=== PATIENT | male | born 1940 | race Caucasian/White ===

== ENCOUNTER 2023-01-22 17:43 | Emergency (ER) | payer MEDICARE ==
[2023-01-22 18:25] LABS: #Basophils 0.1 thou/uL (0.0-0.2); #Eosinphils 0.2 thou/uL (0.0-0.7); #Monocytes 0.7 thou/uL (0.11-0.59); #Neutrophils 4.1 thou/uL (1.40-6.50); %Basophils 1.1 % (0.0-1.0); %Eosinophils 2.8 % (0.0-10.0); %Lymphocytes 27.2 % (21.0-51.0); %Monocytes 9.7 % (0.0-10.0); %Neutrophils 58.8 % (42.0-75.0); Hematocrit 47.1 % (42.0-52.0); Hemoglobin 15.2 g/dL (14.0-18.0); Mean Corpuscular HGB CONC 32.3 g/dL (32.0-36.0); Mean Corpuscular Hemoglobin 30.8 pg (27.0-31.0); Mean Corpuscular Volume 95.3 fl (78.0-98.0); Mean Platelet Volume 14.1 fL (7.4-10.4); Platelet Count 91 10x3/uL (130-400); RBC Distribution Width 14.6 % (11.5-14.5); Red Blood Cell (RBC) Count 4.94 mill/uL (4.70-6.10)
[2023-01-22 18:34] LABS: Bacteria/HPF 3+ HPF (None Seen); Bilirubin Negative (Negative); Blood, Urine Negative (Negative); CAUTI Indications for Culture Alt mental st,lethar; Clarity Clear (Clear); Glucose, Urine (Dipstick) Normal (Negative); Ketone, Urine Negative (Negative); Leukocyte 75 Leu/uL (Negative); Nitrite Negative (Negative); Protein, Urine (Dipstick) 20 mg/dL (Neg-Trace); RBC/HPF 0-3 HPF (0-3); Specific Gravity, Urine 1.015 (1.002-1.036); Squamous Epithelial 0-3 HPF (0-3); Urobilinogen 3 mg/dL (Less than 2); pH, Urine 6.5 (5.0-9.0)
[2023-01-22 18:36] LABS: Urine Culture Reflex No No
[2023-01-22 18:41] LABS: PTT 28.6 sec (22.9-36.1)
[2023-01-22 18:46] LABS: INR-International Normal Ratio 1.2; Prothrombin Time 15.4 sec (12.0-14.7)
[2023-01-22 18:48] LABS: Burr Cells SLIGHT = 2-5 cells HPF (0-1); CellaVision Operator ID LAB.KB; Platelet Adequacy Comment Platelets Decreased
[2023-01-22 18:51] LABS: ALT (SGPT) 15 U/L (8-55); AST (SGOT) 43 U/L (5-34); Albumin 4.2 g/dL (3.4-4.8); Alkaline Phosphatase 197 U/L (40-110); Anion Gap 22 mmol/L (10-20); BUN (Urea Nitrogen) 14 mg/dL (8.4-25.7); Bilirubin, Total 1.3 mg/dL (0.2-1.2); Calc. Creatinine Clearance 0 mL/min (70-130); Calcium 9.4 mg/dL (7.8-10.44); Carbon Dioxide 15 mmol/L (23-31); Chloride 108 mmol/L (98-107); Estimated GFR 73; Globulin 2.8 g/dL (2.4-3.5); Glucose 88 mg/dL (83-110); Potassium 3.8 mmol/L (3.5-5.1); Sodium 141 mmol/L (136-145)
[2023-01-22 18:54] LABS: Troponin I Less than 0.010 ng/mL (< 0.028)
[2023-01-22 19:27] LABS: Base Excess -12.3 mEq/L (-2.0 to +3.0); Calcium, Ionized (venous) 1.09 mmol/L (1.16-1.32); Chloride (VBG) 106 mmol/L (98-106); Hematocrit-VBG 48 % (42.0-52.0); Hemoglobin (Hb) 16.2 g/dL (12.6-17.4); Potassium (VBG) 3.59 mmol/L (3.70-5.30); Sodium 141.1 mmol/L (133-146)
[2023-01-22 19:31] LABS: Actual Bicarbonate (HCO3v) 13.2 mEq/L (22-28)
[2023-01-22 22:01] LABS: Lactic Acid 2.3 mmol/L (0.5-2.2)
== END 2023-01-22 22:29 | disposition home or self-care (01) ==
LOC: EDBD 17:43 → ERS 17:43
DX: R56.9 Unspecified convulsions (principal); E11.9 Type 2 diabetes mellitus without complications; Z79.82 Long term (current) use of aspirin; Z79.899 Other long term (current) drug therapy; Z79.4 Long term (current) use of insulin
CPT/HCPCS: 36415; 51702; 70450; 75809; 80053; 81001; 82805; 83605; 84484; 85025; 85610; 85730; 87040; 87077; 87086; 87186; 93005

== ENCOUNTER 2023-04-11 12:45 | Inpatient (IN) | payer MEDICARE, BC ==
[2023-04-11] MEDS ORDERED: levETIRAcetam 500 MG/5 ML VIAL ONE (13:30)
[2023-04-11 13:39] LABS: #Basophils 0.1 thou/uL (0.0-0.2); #Eosinphils 0.2 thou/uL (0.0-0.7); #Monocytes 0.7 thou/uL (0.11-0.59); #Neutrophils 5.6 thou/uL (1.40-6.50); %Basophils 0.7 % (0.0-1.0); %Eosinophils 2.4 % (0.0-10.0); %Lymphocytes 20.8 % (21.0-51.0); %Monocytes 8.2 % (0.0-10.0); %Neutrophils 67.4 % (42.0-75.0); Hematocrit 41.3 % (42.0-52.0); Hemoglobin 13.5 g/dL (14.0-18.0); Mean Corpuscular HGB CONC 32.7 g/dL (32.0-36.0); Mean Corpuscular Hemoglobin 31.7 pg (27.0-31.0); Mean Corpuscular Volume 96.9 fl (78.0-98.0); Platelet Count 87 10x3/uL (130-400); RBC Distribution Width 14.3 % (11.5-14.5); Red Blood Cell (RBC) Count 4.26 mill/uL (4.70-6.10); White Blood Cell (WBC) Count 8.3 10x3/uL (4.8-10.8)
[2023-04-11 14:06] LABS: ALT (SGPT) 11 U/L (8-55); AST (SGOT) 38 U/L (5-34); Albumin 4.1 g/dL (3.4-4.8); Alkaline Phosphatase 156 U/L (40-110); Anion Gap 21 mmol/L (10-20); BUN (Urea Nitrogen) 15 mg/dL (8.4-25.7); Bilirubin, Total 0.9 mg/dL (0.2-1.2); Calc. Creatinine Clearance 0 mL/min (70-130); Calcium 9.1 mg/dL (7.8-10.44); Carbon Dioxide 15 mmol/L (23-31); Chloride 109 mmol/L (98-107); Estimated GFR 62; Globulin 2.3 g/dL (2.4-3.5); Glucose 108 mg/dL (83-110); Potassium 3.5 mmol/L (3.5-5.1); Protein, Total 6.4 g/dL (5.8-8.1); Sodium 141 mmol/L (136-145)
[2023-04-11 15:29] LABS: Bacteria/HPF None Seen HPF (None Seen); Bilirubin Negative (Negative); Blood, Urine Negative (Negative); CAUTI Indications for Culture Alt mental st,lethar; Clarity Clear (Clear); Glucose, Urine (Dipstick) Normal (Negative); Ketone, Urine Negative (Negative); Leukocyte Negative Leu/uL (Negative); Nitrite Negative (Negative); Protein, Urine (Dipstick) 20 mg/dL (Neg-Trace); RBC/HPF 0-3 HPF (0-3); Specific Gravity, Urine 1.018 (1.002-1.036); Squamous Epithelial 0-3 HPF (0-3); Urobilinogen 6 mg/dL (Less than 2); WBC/HPF 0-3 HPF (0-3); pH, Urine 6.5 (5.0-9.0)
[2023-04-11 15:32] LABS: Urine Culture Reflex No No
[2023-04-11] MEDS ORDERED: Dextrose 10% in Water 1,000 ML IV SCH (16:45)
[2023-04-11] MEDS ORDERED: Senokot S 8.6-50 MG TAB PO PRN (16:46)
[2023-04-11] MEDS ORDERED: Ondansetron ODT 4 MG TAB PO PRN (16:46)
[2023-04-11] MEDS ORDERED: Calcium Carbonate 500 MG ChewTAB PO PRN (16:46)
[2023-04-11] MEDS ORDERED: Dextrose 50% Abboject 50 ML SYRINGE SLOW IVP PRN (16:47)
[2023-04-11] MEDS ORDERED: Glucagon 1 MG/ML KIT IM PRN (16:47)
[2023-04-11] MEDS ORDERED: Dextrose 5% in Water 1,000 ML IV PRN (16:47)
[2023-04-11 18:05] VITALS: BMI 27.2
[2023-04-12 05:53] LABS: #Basophils 0.1 thou/uL (0.0-0.2); #Eosinphils 0.1 thou/uL (0.0-0.7); #Monocytes 0.6 thou/uL (0.11-0.59); #Neutrophils 4.6 thou/uL (1.40-6.50); %Basophils 0.9 % (0.0-1.0); %Eosinophils 1.7 % (0.0-10.0); %Lymphocytes 18.5 % (21.0-51.0); %Monocytes 8.8 % (0.0-10.0); %Neutrophils 69.8 % (42.0-75.0); Hematocrit 37.1 % (42.0-52.0); Hemoglobin 12.5 g/dL (14.0-18.0); Mean Corpuscular HGB CONC 33.7 g/dL (32.0-36.0); Mean Corpuscular Hemoglobin 30.9 pg (27.0-31.0); RBC Distribution Width 13.9 % (11.5-14.5); Red Blood Cell (RBC) Count 4.05 mill/uL (4.70-6.10); White Blood Cell (WBC) Count 6.6 10x3/uL (4.8-10.8)
[2023-04-12 06:03] LABS: Mean Corpuscular Volume 91.6 fl (78.0-98.0); Platelet Count 75 10x3/uL (130-400)
[2023-04-12 06:19] LABS: Anion Gap 11 mmol/L (10-20); BUN (Urea Nitrogen) 10 mg/dL (8.4-25.7); Calc. Creatinine Clearance 75 mL/min (70-130); Calcium 8.3 mg/dL (7.8-10.44); Carbon Dioxide 20 mmol/L (23-31); Chloride 108 mmol/L (98-107); Estimated GFR 79; Glucose 188 mg/dL (83-110); Potassium 3.2 mmol/L (3.5-5.1); Sodium 136 mmol/L (136-145)
[2023-04-12] MEDS ORDERED: Famotidine 20 MG TAB PO SCH (09:00)
[2023-04-12] MEDS ORDERED: Aspirin 81 mg Enteric Coated Tablet PO SCH (10:45)
[2023-04-12] MEDS ORDERED: Carbidopa/Levodopa 25-100 mg Tablet PO SCH (10:45)
[2023-04-12] MEDS ORDERED: Zonisamide 100 MG CAP PO SCH (10:45)
[2023-04-12] MEDS: Carbidopa/Levodopa 25-100 mg Tablet PO SCH ×2 (16:23→20:59)
[2023-04-12] MEDS ORDERED: Potassium Chloride 20 MEQ TAB PO SCH (17:00)
[2023-04-12] MEDS ORDERED: Lisinopril 20 MG TAB PO SCH (17:45)
[2023-04-12] MEDS ORDERED: Potassium Bicarbonate/Cit Ac 20 MEQ TAB PO SCH (18:15)
[2023-04-12] MEDS: Atorvastatin Calcium 40 MG TAB PO SCH (20:59)
[2023-04-12] MEDS: Zonisamide 100 MG CAP PO SCH (20:59)
[2023-04-12] MEDS: Famotidine 20 MG TAB PO SCH (21:00)
[2023-04-13 03:32] LABS: #Basophils 0.1 thou/uL (0.0-0.2); #Eosinphils 0.2 thou/uL (0.0-0.7); #Monocytes 0.6 thou/uL (0.11-0.59); #Neutrophils 3.9 thou/uL (1.40-6.50); %Lymphocytes 22.2 % (21.0-51.0); %Neutrophils 63.3 % (42.0-75.0); Hematocrit 37.6 % (42.0-52.0); Hemoglobin 12.8 g/dL (14.0-18.0); Mean Corpuscular Hemoglobin 31.5 pg (27.0-31.0); Mean Corpuscular Volume 92.6 fl (78.0-98.0); Red Blood Cell (RBC) Count 4.06 mill/uL (4.70-6.10); White Blood Cell (WBC) Count 6.1 10x3/uL (4.8-10.8)
[2023-04-13 03:34] LABS: Platelet Count 74 10x3/uL (130-400)
[2023-04-13 03:41] LABS: Hemoglobin A1c 7.1 % (4.0-6.0)
[2023-04-13 03:53] LABS: ALT (SGPT) Less than 7 U/L (8-55); AST (SGOT) 24 U/L (5-34); Albumin 3.6 g/dL (3.4-4.8); Alkaline Phosphatase 152 U/L (40-110); Anion Gap 11 mmol/L (10-20); BUN (Urea Nitrogen) 11 mg/dL (8.4-25.7); Calc. Creatinine Clearance 67 mL/min (70-130); Calcium 8.5 mg/dL (7.8-10.44); Carbon Dioxide 22 mmol/L (23-31); Chloride 110 mmol/L (98-107); Estimated GFR 69; Glucose 228 mg/dL (83-110); Protein, Total 5.6 g/dL (5.8-8.1); Sodium 139 mmol/L (136-145)
[2023-04-13] MEDS ORDERED: Potassium Bicarbonate/Cit Ac 20 MEQ TAB PO SCH (08:00)
[2023-04-13] MEDS ORDERED: Non-Formulary Item 1 EACH (Insulin Lispro Protamin/Lispro [Humalog Mix 75/25 Kwikpen] 300 SQ SCH (09:00)
[2023-04-13] MEDS: Lisinopril 20 MG TAB PO SCH (09:50)
[2023-04-13] MEDS: Carbidopa/Levodopa 25-100 mg Tablet PO SCH ×3 (09:51→20:37)
[2023-04-13] MEDS: Famotidine 20 MG TAB PO SCH ×2 (09:51→20:37)
[2023-04-13] MEDS: Amlodipine 5 MG TAB PO SCH (09:52)
[2023-04-13] MEDS: Aspirin 81 mg Enteric Coated Tablet PO SCH (09:52)
[2023-04-13] MEDS: HumuLIN 70/30 (300 UNITS/3 ML VIAL) FS SCH ×2 (09:52→20:38)
[2023-04-13] MEDS: Zonisamide 100 MG CAP PO SCH ×2 (09:52→20:37)
[2023-04-13] MEDS ORDERED: hydrALAZINE 20 MG/ML VIAL ONE (11:38)
[2023-04-13] MEDS ORDERED: hydrALAZINE 20 MG/ML VIAL SLOW IVP SCH (12:00)
[2023-04-13] MEDS: hydrALAZINE 25 MG TAB PO SCH ×2 (17:37→20:37)
[2023-04-13] MEDS: Atorvastatin Calcium 40 MG TAB PO SCH (20:37)
[2023-04-14 05:23] LABS: ALT (SGPT) 7 U/L (8-55); AST (SGOT) 24 U/L (5-34); Alkaline Phosphatase 172 U/L (40-110); Anion Gap 15 mmol/L (10-20); BUN (Urea Nitrogen) 12 mg/dL (8.4-25.7); Bilirubin, Total 1.5 mg/dL (0.2-1.2); Calc. Creatinine Clearance 66 mL/min (70-130); Carbon Dioxide 20 mmol/L (23-31); Chloride 107 mmol/L (98-107); Estimated GFR 68; Globulin 2.4 g/dL (2.4-3.5); Glucose 137 mg/dL (83-110); Potassium 3.8 mmol/L (3.5-5.1); Protein, Total 6.4 g/dL (5.8-8.1); Sodium 138 mmol/L (136-145)
[2023-04-14 08:08] VITALS: BP 145/67; TEMP 97.9
[2023-04-14] MEDS: Amlodipine 5 MG TAB PO SCH (08:58)
[2023-04-14] MEDS: Carbidopa/Levodopa 25-100 mg Tablet PO SCH (08:58)
[2023-04-14] MEDS: Famotidine 20 MG TAB PO SCH (08:58)
[2023-04-14] MEDS: Aspirin 81 mg Enteric Coated Tablet PO SCH (08:58)
[2023-04-14] MEDS: Zonisamide 100 MG CAP PO SCH (08:59)
[2023-04-14] MEDS: hydrALAZINE 25 MG TAB PO SCH (08:59)
[2023-04-14] MEDS: Lisinopril 20 MG TAB PO SCH (08:59)
[2023-04-14] MEDS: HumuLIN 70/30 (300 UNITS/3 ML VIAL) FS SCH (09:26)
== END 2023-04-14 14:05 | disposition home or self-care (01) | DRG 638 ==
LOC: ERS 12:45 → ERHOLD 16:55 → 2SE 20:44
PROVIDERS: ADMIT Student in an Organized Health Care Education/Training Program; ATTEND Family Medicine
DX: E11.649 Type 2 diabetes mellitus with hypoglycemia without coma (principal); G91.2 (Idiopathic) normal pressure hydrocephalus; E78.5 Hyperlipidemia, unspecified; K21.9 Gastro-esophageal reflux disease without esophagitis; Z90.49 Acquired absence of other specified parts of digestive tract; Z90.89 Acquired absence of other organs; R00.1 Bradycardia, unspecified; K74.60 Unspecified cirrhosis of liver; D69.6 Thrombocytopenia, unspecified; I10 Essential (primary) hypertension; Z79.82 Long term (current) use of aspirin; Z79.4 Long term (current) use of insulin; Z79.899 Other long term (current) drug therapy; E87.6 Hypokalemia; G20.A1 Parkinson's disease without dyskinesia, without mention of fluctuations
CPT/HCPCS: 36415; 36416; 70450; 80048; 80053; 81001; 83036; 83735; 84146; 85025; 93005; 93306; 96365; 96366; 96367; J0360; J1815; J1953